=== PATIENT | male | born 1975 | race Caucasian/White ===

== ENCOUNTER 2020-02-11 09:10 | Outpatient (CLI) | payer BC, SELFPAY ==
--- NOTE | 2020-02-11 10:45 | NEURO_ITS ---
Patient Number: [id number] Impression: # Complains of left upper extremity pain and numbness. # Left ulnar neuropathy across the elbow. # Normal needle/EMG exam. Nerve Conduction Studies Anti Sensory Summary Table Stim Site NR Peak (ms) P-T Amp (?V) Site1 Site2 Delta-P (ms) Dist (cm) David (m/s) Left Median Anti Sensory (2-3nd Digit) Wrist 2.8 46.4 Wrist 2-3nd Digit 2.8 14.0 50 Wrist 3.0 35.7 Wrist 2-3nd Digit 2.8 14.0 50 Right Median Anti Sensory (2-3nd Digit) Wrist 3.5 24.4 Wrist 2-3nd Digit 3.5 14.0 40 Wrist 3.2 19.0 Wrist 2-3nd Digit 3.5 14.0 40 Left Radial Anti Sensory (Base 1st Digit) Wrist 1.9 15.2 Wrist Base 1st Digit 1.9 0.0 Right Radial Anti Sensory (Base 1st Digit) Wrist 2.1 33.0 Wrist Base 1st Digit 2.1 0.0 Left Ulnar Anti Sensory (5th Digit) Wrist 3.0 18.0 Wrist 5th Digit 3.0 14.0 47 Right Ulnar Anti Sensory (5th Digit) Wrist 3.5 17.8 Wrist 5th Digit 3.5 14.0 40 Motor Summary Table Stim Site NR Onset (ms) O-P Amp (mV) Site1 Site2 Delta-0 (ms) Dist (cm) David (m/s) Left Median Motor (Abd Poll Brev) Wrist 3.2 0.8 Elbow Wrist 5.2 30.0 58 Elbow 8.4 0.4 Right Median Motor (Abd Poll Brev) Wrist 3.3 2.2 Elbow Wrist 5.2 30.0 58 Elbow 8.5 2.0 Left Ulnar Motor (Abd Dig Minimi) Wrist 3.1 4.9 A Elbow Wrist 6.0 30.0 50 A Elbow 9.1 4.1 B Elbow Wrist 4.2 24.0 57 B Elbow 7.3 4.3 Right Ulnar Motor (Abd Dig Minimi) Wrist 3.3 4.7 A Elbow Wrist 5.2 32.0 62 A Elbow 8.5 4.0 F Wave Studies NR F-Lat (ms) L-R F-Lat (ms) Left Median (Mrkrs) (Abd Poll Brev) 28.71 0.53 Right Median (Mrkrs) (Abd Poll Brev) 29.24 0.53 Left Ulnar (Mrkrs) (Abd Dig Min) 31.66 2.05 Right Ulnar (Mrkrs) (Abd Dig Min) 29.61 2.05 EMG Side Muscle Nerve Root Ins Act Fibs Amp Dur Recrt Comment Right 1stDorInt Ulnar C8-T1 Nml Nml Nml Nml Nml Right Ext Indicis Radial (Post Int) C7-8 Nml Nml Nml Nml Nml Right Ext Digitorum Radial (Post Int) C7-8 Nml Nml Nml Nml Nml Right BrachioRad Radial C5-6 Nml Nml Nml Nml Nml Right PronatorTeres Median C6-7 Nml Nml Nml Nml Nml Right Abd Poll Brev Median C8-T1 Nml Nml Nml Nml Nml Left 1stDorInt Ulnar C8-T1 Nml Nml Nml Nml Nml Left Ext Indicis Radial (Post Int) C7-8 Nml Nml Nml Nml Nml Left Ext Digitorum Radial (Post Int) C7-8 Nml Nml Nml Nml Nml Left BrachioRad Radial C5-6 Nml Nml Nml Nml Nml Left PronatorTeres Median C6-7 Nml Nml Nml Nml Nml Left Abd Poll Brev Median C8-T1 Nml Nml Nml Nml Nml MTDD
== END 2020-02-11 09:11 | disposition home or self-care (01) ==
PROVIDERS: PCP Nurse Practitioner Family; Visit Provider Nurse Practitioner Family
DX: R20.0 Anesthesia of skin (principal); G56.22 Lesion of ulnar nerve, left upper limb
CPT/HCPCS: 95886; 95911

== ENCOUNTER 2023-02-18 06:50 | Outpatient (CLI) | payer BC, SELFPAY ==
--- NOTE | ~2023-02-18 | XR_ITS ---
XR lumbar spine 2-3V DATE: 02/18/2023 07:21 INDICATION: Nonradiating low back pain. No injury. TECHNIQUE: AP, lateral, coned lateral lumbosacral views COMPARISON: None FINDINGS: There is a transitional lumbosacral vertebra (fifth functional lumbar vertebra) with sacral ization and pseudoarthrosis on the left and lumbarization on the right. Transitional lumbosacral vert ebra may be a source of chronic back pain. There is severe degenerative disc disease between the fourth and fifth functional lumbar vertebrae. T he remaining lumbar and sacral interspaces appear relatively well preserved. There is mild degenerati ve spurring at L2-3 and L3-4. No fracture or bone destruction is evident. The included lower thoracic and lumbar pedicles are intac t. The sacroiliac joints are intact. 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 IMPRESSION: Transitional fifth functional lumbar vertebra with sacralization an d pseudoarthrosis on the left Severe degenerative disc disease at L4-5
[2023-02-18 08:16] LABS: Basophils Absolute Auto 0.1 K/mm3 (0.0-0.1); Basophils Percent Auto 0.7 % (0.2-1.2); Eosinophils Absolute Auto 0.2 K/mm3 (0-0.3); Eosinophils Percent Auto 2.3 % (0-4.4); Hemoglobin 13.4 g/dL (14.0-18.0); Immature Granulocyte Absolute 0.08 K/mm3 (0.00-0.031); Immature Granulocyte Percent A 0.9 % (0-0.5); Lymphocytes Absolute Auto 2.54 K/mm3 (0.9-3.2); Lymphocytes Percent Auto 29.3 % (18.3-44.2); Mean Corpuscular HGB Conc 31.2 g/dl (32-36); Mean Corpuscular Hemoglobin 23.1 pg (26-34); Mean Platelet Volume 8.7 fl (7.4-10.4); Monocytes Absolute Auto 0.7 K/mm3 (0.1-0.6); Monocytes Percent Auto 7.6 % (2.6-8.5); Neutrophils Absolute Auto 5.1 K/mm3 (1.3-6.7); Neutrophils Percent Auto 59.2 % (45.5-73.1); Platelet Count Result 388 k/mm3 (150-375); Red Blood Count 5.81 M/mm3 (4.6-6.20); Red Cell Distribution Width 15.8 % (11.5-14.5); White Blood Count 8.7 K/mm3 (4.5-10.0)
[2023-02-18 08:26] LABS: Alanine Aminotransferase 46 U/L (6-50); Albumin Level 4.5 g/dL (3.5-5.1); Alkaline Phosphatase 51 U/L (38-126); Anion Gap 7 mmol/L (8-16); Aspartate Amino Transferase 34 U/L (17-59); Bilirubin,Total 0.5 mg/dL (0.2-1.3); Blood Urea Nitrogen 17 mg/dL (9-20); Calcium 9.2 mg/dL (8.4-10.2); Carbon Dioxide 27 mmol/L (22-30); Chloride 105 mmol/L (98-107); Cholesterol 240 mg/dL (0-200); Estimated Glomerular Filt Rate > 60; Glucose 102 mg/dL (65-110); HDL Direct 43 mg/dL; Potassium 4.2 mmol/L (3.4-5.0); Sodium 139 mmol/L (137-145); Triglycerides 275 mg/dL (<150)
[2023-02-18 08:27] LABS: Iron 115 ug/dL (49-181)
[2023-02-18 08:39] LABS: LDL Cholesterol Direct 114 mg/dL
[2023-02-18 08:41] LABS: Free T4 Free Thyroxine 0.91 ng/mL (0.78-2.19)
[2023-02-18 08:49] LABS: Creatinine Urine 220.3 mg/dL
[2023-02-18 08:54] LABS: MALB Creatinine Ratio 3.5 mg/g (0-30); Microalbumin Urine Random 7.7 mg/L (0-16.7)
[2023-02-18 08:55] LABS: Prostate Specific Antigen 0.5 ng/mL (< OR = 4.0); Total Triiodothyronine (T3) 1.43 NG/ML (0.97-1.69)
[2023-02-22 00:24] LABS: Percent Iron Saturation 35 % (20-50)
[2023-02-22 00:26] LABS: Testosterone Free 75.6 pg/mL (46.0-224.0); Testosterone Total 491 ng/dL (250-1100)
== END 2023-02-18 06:51 | disposition home or self-care (01) ==
PROVIDERS: PCP Nurse Practitioner Family; Visit Provider Nurse Practitioner Adult Health
DX: Z00.00 Encounter for general adult medical examination without abnormal findings (principal); M54.50 Low back pain, unspecified; I10 Essential (primary) hypertension; R53.1 Weakness; R53.83 Other fatigue; Z87.891 Personal history of nicotine dependence; Q76.49 Other congenital malformations of spine, not associated with scoliosis; M51.36 Other intervertebral disc degeneration, lumbar region
CPT/HCPCS: 36415; 72100; 80053; 80061; 82043; 82728; 83540; 83550; 84153; 84402; 84403; 84439; 84443; 84480; 85025

== ENCOUNTER 2023-03-08 07:03 | Outpatient (CLI) | payer BC, SELFPAY ==
--- NOTE | ~2023-03-08 | MR_ITS ---
MRI of the lumbar spine Clinical History: Back pain Technique: Axial T2-weighted images, and sagittal T1-weighted, T2-weighted, and T2 fat-sat images wer e acquired. Findings: There is no fracture or subluxation of the lumbar spine. Vertebral bodies maintain normal h eight and alignment. No suspicious bone marrow signal abnormality seen. At L1-L2, L2-L3, L3-L4, there is no disc bulge or herniation. There are mild facet joint degenerative changes at these levels. No spinal canal stenosis or neural foraminal narrowing at these levels. At L4-L5, there is advanced degenerative disc narrowing. There is mild diffuse disc bulge with modera te facet arthropathy. No central canal stenosis. There is moderate left neural foraminal narrowing an d severe right neural foraminal narrowing. At L5-S1, there is no disc bulge or herniation. There is moderate to advanced facet arthropathy. No s angela canal stenosis or neural foraminal narrowing. Paravertebral soft tissues are unremarkable. Impression: Moderate to advanced degenerative spondylosis at L4-L5, as detailed above. Reviewed, dictated and finalized at [facility] M. Impression: Moderate to advanced degenerative spondylosis at L4-L5, as detailed above.
== END 2023-03-08 07:04 ==
LOC: MICIMG 07:04
PROVIDERS: PCP Nurse Practitioner Adult Health; Visit Provider Nurse Practitioner Adult Health
DX: M47.816 Spondylosis without myelopathy or radiculopathy, lumbar region (principal)
CPT/HCPCS: 72148

== ENCOUNTER 2023-06-14 07:07 | Outpatient (CLI) | payer BC, SELFPAY ==
[2023-06-14 07:48] LABS: Basophils Absolute Auto 0.1 K/mm3 (0.0-0.1); Basophils Percent Auto 0.8 % (0.2-1.2); Eosinophils Absolute Auto 0.2 K/mm3 (0-0.3); Eosinophils Percent Auto 2.1 % (0-4.4); Hematocrit 49.2 % (42.0-52.0); Immature Granulocyte Absolute 0.03 K/mm3 (0.00-0.031); Immature Granulocyte Percent A 0.4 % (0-0.5); Lymphocytes Absolute Auto 2.69 K/mm3 (0.9-3.2); Lymphocytes Percent Auto 34.8 % (18.3-44.2); Mean Corpuscular HGB Conc 30.5 g/dl (32-36); Mean Corpuscular Volume 75.5 fl (80-100); Mean Platelet Volume 8.8 fl (7.4-10.4); Monocytes Absolute Auto 0.8 K/mm3 (0.1-0.6); Monocytes Percent Auto 10.6 % (2.6-8.5); Neutrophils Percent Auto 51.3 % (45.5-73.1); Platelet Count Result 378 k/mm3 (150-375); Red Blood Count 6.52 M/mm3 (4.6-6.20); Red Cell Distribution Width 15.3 % (11.5-14.5); White Blood Count 7.7 K/mm3 (4.5-10.0)
[2023-06-18 13:09] LABS: Testosterone Free 305.2 pg/mL (35.0-155.0); Testosterone Total 1143 ng/dL (250-1100)
[2023-06-21 22:41] LABS: Estradiol, Ultrasensitive 58 pg/mL (< OR = 29)
== END 2023-06-14 07:08 | disposition home or self-care (01) ==
LOC: ANHLAB 07:08
PROVIDERS: PCP Nurse Practitioner Adult Health; Visit Provider Nurse Practitioner Adult Health
DX: R53.83 Other fatigue (principal); I10 Essential (primary) hypertension
CPT/HCPCS: 36415; 82670; 84402; 84403; 85025

== ENCOUNTER 2023-10-23 14:38 | Outpatient (CLI) | payer BC, SELFPAY ==
[2023-10-23 15:50] LABS: Alanine Aminotransferase 33 U/L (6-50); Albumin Level 4.5 g/dL (3.5-5.1); Alkaline Phosphatase 44 U/L (38-126); Anion Gap 4 mmol/L (8-16); Aspartate Amino Transferase 36 U/L (17-59); Bilirubin,Total 0.7 mg/dL (0.2-1.3); Blood Urea Nitrogen 13 mg/dL (9-20); Calcium 9.4 mg/dL (8.4-10.2); Carbon Dioxide 27 mmol/L (22-30); Chloride 105 mmol/L (98-107); Cholesterol 180 mg/dL (0-200); Estimated Glomerular Filt Rate > 60; Glucose 91 mg/dL (65-110); HDL Direct 42 mg/dL; Potassium 4.2 mmol/L (3.4-5.0); Sodium 136 mmol/L (137-145); Triglycerides 156 mg/dL (<150)
[2023-10-23 16:01] LABS: LDL Cholesterol Direct 109 mg/dL
[2023-10-30 14:42] LABS: Testosterone Total 1532 ng/dL (250-1100)
== END 2023-10-23 14:39 | disposition home or self-care (01) ==
LOC: ANHLAB 14:42
PROVIDERS: Registered Nurse; PCP Nurse Practitioner Adult Health; Visit Provider Family Medicine
DX: I10 Essential (primary) hypertension (principal); E78.5 Hyperlipidemia, unspecified
CPT/HCPCS: 36415; 80053; 80061; 84402; 84403

== ENCOUNTER 2023-11-01 08:38 | Outpatient (CLI) | payer BC, SELFPAY ==
[2023-11-01 10:29] LABS: Prostate Specific Antigen 1.1 ng/mL (< OR = 4.0)
[2023-11-05 17:49] LABS: Testosterone Free 357.8 pg/mL (35.0-155.0); Testosterone Total 1350 ng/dL (250-1100)
== END 2023-11-01 08:39 | disposition home or self-care (01) ==
LOC: ANHLAB 08:41
PROVIDERS: PCP Nurse Practitioner Adult Health; Visit Provider Family Medicine
DX: E29.1 Testicular hypofunction (principal); N40.0 Benign prostatic hyperplasia without lower urinary tract symptoms
CPT/HCPCS: 36415; 84153; 84402; 84403

== ENCOUNTER 2024-05-05 09:31 | Outpatient (CLI) | payer BC, SELFPAY ==
[2024-05-05 10:36] LABS: Basophils Absolute Auto 0.1 K/mm3 (0.0-0.1); Basophils Percent Auto 0.6 % (0.2-1.2); Eosinophils Absolute Auto 0.1 K/mm3 (0-0.3); Eosinophils Percent Auto 1.6 % (0-4.4); Hemoglobin 15.5 g/dL (14.0-18.0); Immature Granulocyte Absolute 0.02 K/mm3 (0.00-0.031); Immature Granulocyte Percent A 0.2 % (0-0.5); Lymphocytes Absolute Auto 4.01 K/mm3 (0.9-3.2); Lymphocytes Percent Auto 46.7 % (18.3-44.2); Mean Corpuscular HGB Conc 32.3 g/dl (32-36); Mean Corpuscular Hemoglobin 24.1 pg (26-34); Mean Corpuscular Volume 74.7 fl (80-100); Monocytes Absolute Auto 0.6 K/mm3 (0.1-0.6); Monocytes Percent Auto 7.3 % (2.6-8.5); Neutrophils Absolute Auto 3.7 K/mm3 (1.3-6.7); Neutrophils Percent Auto 43.6 % (45.5-73.1); Platelet Count Result 285 k/mm3 (150-375); Red Blood Count 6.43 M/mm3 (4.6-6.20); Red Cell Distribution Width 14.8 % (11.5-14.5); White Blood Count 8.6 K/mm3 (4.5-10.0)
[2024-05-05 10:53] LABS: Alanine Aminotransferase 33 U/L (6-50); Albumin Level 4.4 g/dL (3.5-5.1); Alkaline Phosphatase 54 U/L (38-126); Anion Gap 8 mmol/L (4-12); Aspartate Amino Transferase 35 U/L (17-59); Bilirubin,Total 0.6 mg/dL (0.2-1.3); Blood Urea Nitrogen 17 mg/dL (9-20); Calcium 8.8 mg/dL (8.4-10.2); Carbon Dioxide 28 mmol/L (22-30); Chloride 102 mmol/L (98-107); Cholesterol 178 mg/dL (0-200); Estimated Glomerular Filt Rate > 60; Glucose 91 mg/dL (65-110); HDL Direct 47 mg/dL; Potassium 4.3 mmol/L (3.4-5.0); Sodium 138 mmol/L (137-145); Triglycerides 93 mg/dL (<150)
[2024-05-05 11:04] LABS: LDL Cholesterol Direct 95 mg/dL
[2024-05-05 11:06] LABS: Platelet Estimate Adequate (Adequate)
[2024-05-05 11:09] LABS: Microcytosis 1+ (NORMAL)
[2024-05-05 11:10] LABS: Schistocytes None Seen
[2024-05-05 11:22] LABS: Prostate Specific Antigen 0.8 ng/mL (< OR = 4.0)
[2024-05-12 20:48] LABS: Testosterone Free 97.8 pg/mL (35.0-155.0); Testosterone Total 543 ng/dL (250-1100)
== END 2024-05-05 09:32 | disposition home or self-care (01) ==
PROVIDERS: PCP Nurse Practitioner Adult Health; Visit Provider Family Medicine
DX: N40.0 Benign prostatic hyperplasia without lower urinary tract symptoms (principal); E29.1 Testicular hypofunction
CPT/HCPCS: 36415; 80053; 80061; 84153; 84402; 84403; 85025

== ENCOUNTER 2024-06-30 08:39 | Outpatient (CLI) | payer BC, SELFPAY ==
--- NOTE | ~2024-06-30 | XR_ITS ---
XR sacrum coccyx min 2V Ordering provider: Morales Nieves, HAND BANDER History: . nO INJURY LBP THAT GOES DOWN BOTH LEGS . Comparison: None. FINDINGS: BONES: No acute fracture or dislocation. Attempt of sacralization of L5 is seen in the left side with pseudoarthrosis. Severe narrowing of the disc L4-L5. Moderate narrowing of the disc L5-S1. JOINTS: The sacroiliac joint spaces are normal. SOFT TISSUES: Normal. IMPRESSION: No definite acute osseous abnormality sacrum. If Patient continues to have symptoms CT is advised. Reviewed, dictated and finalized at location A. E MOVING SUPERVISOR
--- NOTE | ~2024-06-30 | XR_ITS ---
3 VIEWS LUMBAR SPINE Ordering provider: Morales Nieves, SALESPERSON TRAILERS AND MOTOR HOMES History: . nO RECENT INJURY LBP THAT GOES DOWN BOTH LEGS . Comparison: None. FINDINGS: VERTEBRAL BODIES: No visible fracture or subluxation. DISK SPACES: Severe degenerative disc disease at the level of L4-L5 and L5-S1. Facet joint disease at the 2 levels. SOFT TISSUES: Normal. IMPRESSION: No acute osseous abnormality lumbar spine. Severe narrowing of the disc L4-L5 and to lesser extent L5-S1. Reviewed, dictated and finalized at location A. MER MACHINE OPERATOR
== END 2024-06-30 08:40 | disposition home or self-care (01) ==
PROVIDERS: PCP Family Medicine; Visit Provider Registered Nurse
DX: M48.061 Spinal stenosis, lumbar region without neurogenic claudication (principal); M48.07 Spinal stenosis, lumbosacral region
CPT/HCPCS: 72100; 72220

== ENCOUNTER 2025-01-01 07:07 | Outpatient (CLI) | payer BC, SELFPAY ==
--- OUTSIDE RECORDS SUMMARY | 2025-01-01 07:13 | XMS_ITS | Clinical Summary ---
Author Organization [facility] Address [address] [place] [address] Care Team Providers Care Tile Presser Name Role Phone No, Physician Primary Care Provider [phone] Allergies Active Allergy Reactions Criticality Noted Date Comments Penicillins Medications naloxone (NARCAN) 1 mg/mL injection [place] one-half of syringe (1 mL) into each nostril upon signs of opioid overdose. December repeat x 1. Call 911. 4 mL 9 Active bacitracin 500 unit/gram ointment Apply topically 2 (two) times a day 120 g 9 Active HYDROcodone-samia taminophen (NORCO) 5-325 mg per tabletIndicatio ns:Pain Take 1 tablet by mouth every 6 (six) hours as needed for pain for up to 15 doses 12 tablet 3 Active Active Problems Problem Noted Date Diagnosed Date Foreign body in forearm 11/30/2016 Immunizations Immunization Administration Dates Next Due Tdap 04/05/2019 Social History Tobacco Use Types Packs/Day Years Used Date Smoking Tobacco: Every Day Personal Safety Answer Date Recorded Getting School Help Needed Not on file 02/19 Sex and Gender Information Value Date Recorded Sex Assigned at Not on file 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 Gender Identity Not on file Sexual Orientation Not on file Obstetrics History Last Filed Vital Signs Vital Sign Reading Time Taken Comments Blood Pressure 119/79 02/09/2023 11:20 AM CDT Pulse 72 02/09/2023 11:20 AM CDT Temperature 36.6 C (97.9 F) 02/09/2023 11:20 AM CDT Respiratory Rate 16 02/09/2023 11:20 AM CDT Oxygen Saturation 97% 02/09/2023 11:20 AM CDT Inhaled Oxygen Concentration - - Weight 93.6 kg (206 lb 5.6 oz) 02/09/2023 11:20 AM CDT Height 172.7 cm (5' 8) 02/09/2023 11:20 AM CDT Body Mass Index 31.38 02/09/2023 11:20 AM CDT Plan of Treatment Health Maintenance Due Date Last Done Comments Colon Cancer Screening-Colonoscopy 1975 Depression Screening 1975 Hepatitis B Screening 1993 Regular Well Visit/Exam 18-64 1993 Pneumococcal vaccine <65 (1 of 2 - PCV) 1994 Influenza Vaccine (Season Ended) 2025 DTaP/Tdap/Td Vaccine (2 - Td or Tdap) 04/05/202908/2018 Hepatitis C Screening Completed 06/09/2016 Procedures Procedure Name Priority Date/Time Associated Diagnosis Comments SERUM HEPATITIS C AB Routine 06/09/2016 12:11 PM CDT from Last 3 Months or Most Recently Relevant to Health Maintenance Results * Serum Hepatitis C ab (06/09/2016 12:11 PM CDT) HCV ab Negative NEG CDR HISTOR ICAL RESULTS Serum 06/09/2016 12:1 1 PM CDT Kalani Mcenal NP LAB BLOOD ORDERABLES Final Re sult CDR HISTORICAL RESULTS from Last 3 Months or Most Recently Relevant to Health Maintenance Insurance [facility] Care Teams Tile Presser Relationship Specialty Start Date End Date No, Physician PCP - General 02/09/23
--- OUTSIDE RECORDS SUMMARY | 2025-01-01 07:13 | XMS_ITS | Clinical Summary ---
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:57 AM DIRECTOR OF PEOPLE Gender Identity Not on file Sexual Orientation Not on file Plan of Treatment Health Maintenance Due Date Last Done Comments Hepatitis C Virus (HCV) Screening 1975 TdaP Immunization 1975 Hepatitis B Immunization (1 of 3 - 19+ 3-dose series) 1994 Colonoscopy 2020 Colorectal Cancer Screening 2020 Influenza Immunization (#1) 2024 SARS-COV-2 Immunization ( season) 2024 Respiratory Syncytial Virus (RSV) Immunization (Adult) (1 - 1-dose 75+ series) 2050 Meningococcal Immunization (ACWY) Aged Out No longer eligible based on patient's age to complete this topic Pneumococcal Immunization Combined Aged Out No longer eligible based on patient's age to complete this topic Rotavirus Immunization Aged Out No lo nger eligible based on patient's age to complete this topic
--- OUTSIDE RECORDS SUMMARY | 2025-01-01 07:13 | XMS_ITS | Continuity of Care Document ---
Author Organization [facility] Address [address] [place] [address] Phone Care Team Providers Care Agriscience Instructor Name Role Phone Pablo Hutchinson PA-C Unavailable Unava ilable Allergies, Adverse Reactions, Alerts Substance Reaction Status Criticality PENICILLIN Active No Information Medications Medication Instructions Dosage Effective Dates (start - stop) Status Comments Debrox 6.5 % ear drops instill 5 drop by otic route 2 times every day into affected ear(s) 5.00 drop - No Longer Active trazodone 50 mg tablet take 1-2 tablets by mouth before bedtime - No Longer Active Prozac 40 mg capsule take 1 capsule by oral route every day in the morning 40 MG - No Longer Active ProAir HFA 90 mcg/actuation aerosol inhaler inhale 2 puff by inhalation route every 4 - 6 hours as needed No Longer Active Mucus Relief ER 600 mg tablet,extended release take 1 tablet by oral route every 12 hours as needed - No Longer Active naproxen 500 mg tablet take 1 tablet by oral route 2 times every day with food 500 MG - No Longer Active Debrox 6.5 % ear drops instill 5 drop by otic route 2 times every day into affected ear(s) 5.00 drop - No Longer Active Procedures Procedure Date PERIODIC COMPREHENSIVE PREVENTIVE MED RE E/M; ESTABLISHED PATIENT; 40-64 Alcohol and/or drug screening Apr-20-201 8 OFFICE/OUTPATIENT VISIT, EST OFFICE/OUTPATIENT VISIT, EST COLLECTION OF VENOUS BLOOD BY VENIPUNCTU RE IRON IRON BINDING CAPACITY FERRITIN FOLIC ACID; SERUM CYANOCOBALAMIN (VITAMIN B-12); 17 OFFICE OUTPT EST 25 MIN Alcohol and/or drug screening 7 REMOVAL IMPACTED CERUMEN (SEPARATE PROCE DURE), ONE OR BOTH EARS Urinalysis, Auto, w/o Scope COLLECTION OF VENOUS BLOOD BY VENIPUNCTU RE COMPRE METAB PANEL BLOOD COUNT; COMPLETE (CBC), AUTOMATED (HGB, HCT, RBC, WBC AND PLATELET COUNT) PROSTATE SPECIFIC ANTIGEN (PSA); TOTAL J HIV-1 Antigen, W/HIV-1 & HIV-2 Antibody, Single Re LIPID PANEL HEPATITIS C ANTIBODY; IAAD EIA HEP B SURF AG OFFICE/OUTPATIENT VISIT, NEW PERIODIC COMPREHENSIVE PREVENTIVE MED RE E/M; ESTABLISHED PATIENT; 40-64 ALCOHOL/SUBSTANCE SCREEN & INTERVEN >30 MIN Advance Directives Directive Yes / No Effective Date File Name No Information Encounters Encounter Description Practice Location Reason(s) For Visit Diagnoses Date Provider Providers Copied on Encounter PERIODIC COMPREHENSIVE PREVENTIVE MED REE/M; ESTABLISHED PATIENT; 40-64 [facility], [address], [place], [place], [address] , tel: [phone] [facility] Preventive exam (chief complaint) Encntr for general adult medical exam w/o abnormal findingsEncou nter for screening for Ca of prostateEncou nter for screening for respiratory tuberculosisE ncounter for screening for other disorder [address] [facility]. [address], [place], [place], [address], [place]. [phone] Referring Provider: Pablo otero, [address], [place], [address] . tel:[phone] OFFICE/OUTPATI ENT VISIT, EST [facility], [address], [place], [place], [address] , [place] tel:[phone] [facility] depression (chief complaint) DepressionOth er abnormality of red blood cells 7 Evangelina Shah. [address], [place], [place], [address], [place]. tel:[phone] Referring Provider: Pablo Villarreal er, [address], [place], [address] . tel:[phone] OFFICE/OUTPATI ENT VISIT, EST [facility], [address], [place], [place], [address] , [place] tel:[phone] [facility] discussion of labs (chief complaint) Hyperlipidemi aOther abnormality of red blood cellsEncounte r for screening for other disorder 7 Lorna Dean. [address], [place], [place], [address], [place]. tel:[phone] OFFICE OUTPT EST 25 MIN [facility], [address], [place], [place], [address] , [place] tel:[phone] [facility] multiple complaints (chief complaint) DepressionBro nchitisImpact ed cerumen, right earEncounter for screening for other disorder 7 Evangelina Shah. [address], [place], [place], [address], [place]. tel:[phone] OFFICE/OUTPATI ENT VISIT, NEW [facility], [address], [place], [place], [address] , [place] tel: [phone] [facility] Psychiatric evaluation (chief complaint) 6 No Information PERIODIC COMPREHENSIVE PREVENTIVE MED REE/M; ESTABLISHED PATIENT; 40-64 [facility], [address], [place], [place], [address] , [place] tel:[phone] [facility] establish pcp (chief complaint) Encntr for general adult medical exam w/o abnormal findings [facility]. [address], [place], [place], [address], [place]. tel:[phone] Referring Provider: Pablo Villarreal er, [address], [place], [address] . tel:[phone] ALCOHOL/SUBSTA NCE SCREEN & INTERVEN >30 MIN [facility], [address], [place], [place], [address] , [place] tel:[phone] [facility] Depression No Information As per patient privacy policy some of the clinical information may not be visible. Family History Family Member Type Diagnosis Age At Onset No Information Immunizations Vaccine Date Status Comments Adacel/Boostrix (Tdap) administered Note: ER ; Source: Other Provider Payers Payer name Insurance type Covered constitution party ID Authoriza tion(s) No Information Social History Type Description Quantity Date Captured Comments Alcohol Use Details No 3 beers Caffeine Use Details Unknown Tobacco Use Status Smoking Status Heavy tobacco smoker Sex Male Sexual Orientation Straight or heterosexual Vital Signs Date / Time: Height Weight BMI Pulse Rate Blood Pressure Temperature Respiratory Rate Body Surface Area Head Circumference Head Circ. Percentile Wt./Luis. Percentile BMI percentile Pulse Ox Inhaled Ox 2:11 PM 68.00 in 79.696 kg (175.70 lbs) 26.7 1 kg/m eter (2) 98 /min 116/73 mm[Hg] 98.20 F 18 /min 97 % Chief Complaint And Reason For Visit From encounter dated '11/22/2017 14:15'. Preventive exam (chief complaint). Description: Men's preventive visit. Last seen 08/2016. Doing well. No hospitalizations or ER visits. No depression. No substance abuse. Feels well. No chronic or acute complaints. Reason For Referral Reason For Referral No Information Plan Of Treatment Date Type Action Status Goal Tobacco cessation counseling completed Goal Tobacco cessation counseling completed Goal Tobacco cessation counseling completed Future Order: Lab Order CBC (H/H , RBC, Indices, WBC, Plt) ([id number]), Ordered on: Ordered Future Order: Lab Order Basic Me tabolic Panel ([id number]), Ordered on: Ordered Future Order: Lab Order PSA Tota l ([id number]), Ordered on: Ordered Future Order: Lab Order Urinalys is, Macroscopic (POC) (OC80), Ordered on: Ordered Future Order: Lab Order QuantiFE MIKE(R)-TB Gold ([id number]), Ordered on: Ordered Future Order: Lab Order CBC (H/H , RBC, INDICES, WBC, PLT) (OC68), Ordered on: Ordered Future Order: Lab Order Comprehe nsive Metabolic Panel (OC71), Ordered on: Ordered Future Order: Lab Order Direct L DL (OC36), Ordered on: Ordered Future Order: Lab Order POC Hemo globin A1C (OC45), Ordered on: Ordered Future Order: Lab Order TSH with Reflex to Free T4 (OC58), Ordered on: Ordered Future Order: Lab Order Urinalys is, Macroscopic (OC80), Ordered on: Ordered Future Order: Lab Order HIV-1/2 Antigen and Antibodies, Fourth Generation, with Reflexes (OC54), Ordered on: Ordered Future Order: Lab Order Hepatiti s C Antibody (Diagnosis) (OC57), Ordered on: Ordered History Of Present Illness Encounter Date Complaint History Of Prese nt Illness Preventive exam Men's preventive visit. Last seen 08/2016. Doing well. No hospitalizations or ER visits. No depression. No substance abuse. Feels well. No chronic or acute complaints. depression This is a follow up visit. There is improvement of initial symptoms. The patient reports functioning as not difficult at all. The patient presents with depressed mood, difficulty falling asleep and difficulty staying asleep but denies hallucinations or thoughts of or suicide. The patient's risk factors include alcoholism. The depression is aggravated by alcohol use. The patient's relieving factors are a good response to medication (Prozac). The patient denies any chronic pain, headache, irritability, nausea, sweating, trembling, urinary frequency, vomiting and weight gain. discussion of labs Patient prese nting for discussion of labs,had recent URI,treated,did labs recently. Patient has an MCV=74--rsp=892-- multiple complaints Pt last seen March 2016. 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 Only complaint was stress over spouse and children. Was seen and cleared by Psych at subsequent visit. Pt states since March he has had 3 relapses with cocaine and alcohol. Stays at [facility]. Pt went to [facility] ER 4 days ago for cough and dyspnea as well as depression. Was diagnosed with acute bronchitis and given z-pac, inhaler and mucolytic. Only picked up z-pack and finished entire antibiotic. Denies dyspnea but does have lingering dry cough. C/o mucus stuck in chest he cannot expel. Denies fever, chills, pleuritic pain. He was given zoloft, amitriptyline and trazodone in the ER for depression and difficulty sleeping. Does not like zoloft as it causes GI upset. Had trialed it in the past as well with similar effect. Does admit to taking Prozac and Traz in the past with good results. Denies SI/SA, HI/[place], AH/VH. establish pcp Pt here to [facility] care and physical. PMH insignificant except for substance abuse. No prior surgeries, hospitalizations. No allergies. No medications. FH unremarkable. remarkable for incarceration, released in 2007. No complaints current or recent. Functional Status Date Functional Assessmen t Pain Score 0/10 Medications Administered Medication Instructions Dosage Effective Dates (start - stop) Status Comments Debrox 6.5 % ear drops instill 5 drop by otic route 2 times every day into affected ear(s) 5.00 drop - No Longer Active Instructions Date Instruction Additional Raudel crum Cannot make it back on Saturday to have PPD read.Will have Quantiferon drawn instead. Related to Encounter for screening for respiratory tuberculosis Discussed:Healthy di et and weightDaily exerciseDentist biannuallyVision screening annuallyAll age appropriate screenings and diagnostic exams Related to Encntr for general adult medical exam w/o abnormal findings Iron labs normalMild microcytic anemia - will await hemoglobinopathy studiesWill recheck CBC in 2 months - will have been sober 3+ months by then Related to Other abnormality of red blood cells Patient stable today ; No SA/SI, AH/VH, HI/HATreatment Plan: Continue Prozac 40mg, Trazodone prn qhsCounseled on signs and symptoms of emergency and when to call 911 or go to the ER. Patient verbalized an understanding.Counseled on medication uses and potential side effects. Counseled on when to call the office. Patient verbalized an understanding.Discussed best treatment plan which includes medication, counseling, adequate sleep, healthy diet and exercise and avoiding mind-altering substances.[facility] Hotline provided: ([phone]) Related to Depression Mucinex and Pro-AirC all if no improvement Related to Bronchitis Debrox as directedAvoid Q-tips R elated to Impacted cerumen, right ear Patient stable today ; No SA/SI, AH/VH, HI/HATreatment Plan: Start Prozac 40mg qd, Trazodone 50mg qhs, f/u 1 monthCounseled on signs and symptoms of emergency and when to call 911 or go to the ER. Patient verbalized an understanding.Counseled on medication uses and potential side effects. Counseled on when to call the office. Patient verbalized an understanding.Discussed best treatment plan which includes medication, counseling, adequate sleep, healthy diet and exercise and avoiding mind-altering substances.[facility] Hotline provided: ([phone]) Related to Depression Routine labs todayDi scussed healthy diet and exerciseReturn in 6 months Related to Encntr for general adult medical exam w/o abnormal findings Assessments Type Assessment Date assessment Encntr for general adult medical exam w/o abnormal findings assessment Encounter for screening for Ca o f prostate assessment Encounter for screening for resp iratory tuberculosis assessment Encounter for screening for othe r disorder Mental Status Date Cognitive Assessment Orientation - [place] ed to time, place, person, situation. Patient Care Teams Name Effective Dates (start - stop) Status Members No Information
--- OUTSIDE RECORDS SUMMARY | 2025-01-01 07:13 | XMS_ITS | Referral Summary ---
Author Organization [facility] Address [address] [place] [address] Care Team Providers Care Manufacturing Controls Engineer Name Role Phone No, Physician Primary Care Provider [phone] Allergies Active Allergy Reactions Criticality Noted Date Comments Penicillins Medications naloxone (NARCAN) 1 mg/mL injection [place] one-half of syringe (1 mL) into each nostril upon signs of opioid overdose. December repeat x 1. Call 911. 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 Gender Identity Not on file Sexual Orientation Not on file Last Filed Vital Signs Vital Sign Reading [...] 02/09/2023 11:20 AM CDT Plan of Treatment Not on file Procedures Procedure Name Priority Date/Time Associated Diagnosis Comments SERUM HEPATITIS C AB Routine 06/09/2016 12:11 PM CDT from Last 3 Months or Most Recently Relevant to Health Maintenance Results * Serum Hepatitis C ab (06/09/2016 12:11 PM CDT) HCV ab Negative NEG CDR HISTOR ICAL RESULTS Serum 06/09/2016 12:1 1 PM CDT Kalani Mcneal CHIEF INFORMATION SECURITY OFFICER LAB BLOOD ORDERABLES Final Re sult CDR HISTORICAL RESULTS from Last 3 Months or Most Recently Relevant to Health Maintenance Insurance [facility] ACCESS Member Subscriber Plan / Payer (Ef fective 2022-Present) Name:Thomas Vidales Relation to Subscriber:Spouse Name:JOELALEXANDER Payer ID:[id number] (NAIC) Type: [employer] Address: [facility] [id number] [phone] [place] Care Teams Manufacturing Controls Engineer Relationship Specialty Start Date End Date No, Physician PCP - General 02/09/23
[2025-01-01 08:00] LABS: Basophils Absolute Auto 0.1 K/mm3 (0.0-0.1); Basophils Percent Auto 0.6 % (0.2-1.2); Eosinophils Absolute Auto 0.2 K/mm3 (0-0.3); Hematocrit 43.4 % (42.0-52.0); Hemoglobin 13.3 g/dL (14.0-18.0); Immature Granulocyte Absolute 0.06 K/mm3 (0.00-0.031); Immature Granulocyte Percent A 0.7 % (0-0.5); Lymphocytes Absolute Auto 3.53 K/mm3 (0.9-3.2); Lymphocytes Percent Auto 44.1 % (18.3-44.2); Mean Corpuscular HGB Conc 30.6 g/dl (32-36); Mean Corpuscular Hemoglobin 23.3 pg (26-34); Mean Corpuscular Volume 75.9 fl (80-100); Mean Platelet Volume 8.7 fl (7.4-10.4); Monocytes Absolute Auto 0.7 K/mm3 (0.1-0.6); Monocytes Percent Auto 8.9 % (2.6-8.5); Neutrophils Absolute Auto 3.5 K/mm3 (1.3-6.7); Neutrophils Percent Auto 43.7 % (45.5-73.1); Platelet Count Result 336 k/mm3 (150-375); Red Blood Count 5.72 M/mm3 (4.6-6.20); Red Cell Distribution Width 15.5 % (11.5-14.5)
[2025-01-01 08:09] LABS: Alanine Aminotransferase 29 U/L (6-50); Albumin Level 4.3 g/dL (3.5-5.1); Alkaline Phosphatase 43 U/L (38-126); Anion Gap 6 mmol/L (4-12); Aspartate Amino Transferase 31 U/L (17-59); Bilirubin,Total 0.3 mg/dL (0.2-1.3); Blood Urea Nitrogen 20 mg/dL (9-20); Calcium 9.5 mg/dL (8.4-10.2); Carbon Dioxide 27 mmol/L (22-30); Chloride 107 mmol/L (98-107); Cholesterol 209 mg/dL (0-200); Estimated Glomerular Filt Rate > 60; Glucose 104 mg/dL (65-110); HDL Direct 50 mg/dL; Potassium 4.5 mmol/L (3.4-5.0); Sodium 140 mmol/L (137-145); Triglycerides 111 mg/dL (<150)
[2025-01-01 08:19] LABS: LDL Cholesterol Direct 97 mg/dL
[2025-01-01 08:39] LABS: Prostate Specific Antigen 0.5 ng/mL (< OR = 4.0)
[2025-01-06 16:58] LABS: Testosterone Free 229.1 pg/mL (35.0-155.0); Testosterone Total 1158 ng/dL (250-1100)
== END 2025-01-01 07:08 | disposition home or self-care (01) ==
LOC: ANHLAB 07:11
PROVIDERS: PCP Family Medicine; Visit Provider Registered Nurse
DX: E29.1 Testicular hypofunction (principal); I10 Essential (primary) hypertension; Z12.5 Encounter for screening for malignant neoplasm of prostate
CPT/HCPCS: 36415; 80053; 80061; 84153; 84402; 84403; 85025; G0103

== ENCOUNTER 2025-05-21 07:06 | Outpatient (CLI) | payer BC, SELFPAY ==
[2025-05-21 08:01] LABS: Hematocrit 44.5 % (42.0-52.0); Hemoglobin 13.7 g/dL (14.0-18.0); Mean Corpuscular HGB Conc 30.8 g/dl (32-36); Mean Corpuscular Hemoglobin 22.8 pg (26-34); Mean Corpuscular Volume 74.0 fl (80-100); Platelet Count Result 299 k/mm3 (150-375); Red Blood Count 6.01 M/mm3 (4.6-6.20); White Blood Count 9.5 K/mm3 (4.5-10.0)
[2025-05-21 08:15] LABS: Hemoglobin A1C 5.5 % (<5.7)
[2025-05-21 08:51] LABS: Alanine Aminotransferase 28 U/L (6-50); Albumin Level 4.3 g/dL (3.5-5.1); Alkaline Phosphatase 74 U/L (38-126); Anion Gap 6 mmol/L (4-12); Aspartate Amino Transferase 30 U/L (17-59); Bilirubin,Total 0.4 mg/dL (0.2-1.3); Blood Urea Nitrogen 15 mg/dL (9-20); Calcium 9.2 mg/dL (8.4-10.2); Carbon Dioxide 26 mmol/L (22-30); Chloride 109 mmol/L (98-107); Cholesterol 150 mg/dL (0-200); Estimated Glomerular Filt Rate > 60; Glucose 94 mg/dL (65-110); HDL Direct 34 mg/dL; Potassium 4.9 mmol/L (3.4-5.0); Sodium 141 mmol/L (137-145); Total Protein 7.1 g/dL (6.3-8.2); Triglycerides 128 mg/dL (<150)
[2025-05-21 09:27] LABS: Prostate Specific Antigen 1.1 ng/mL (< OR = 4.0)
[2025-05-21 10:00] LABS: Thyroid Stimulating Hormone Reflex 1.180 uIU/mL (0.465-4.68)
[2025-05-21 10:02] LABS: Vitamin B12 336.0 pg/mL (239-931)
== END 2025-05-21 07:07 | disposition home or self-care (01) ==
LOC: ANHLAB 07:11
PROVIDERS: PCP Family Medicine; Visit Provider Nurse Practitioner Family
DX: Z13.1 Encounter for screening for diabetes mellitus (principal); Z12.5 Encounter for screening for malignant neoplasm of prostate; R53.83 Other fatigue; E78.5 Hyperlipidemia, unspecified
CPT/HCPCS: 36415; 80053; 80061; 82306; 82607; 82746; 83036; 84153; 84443; 85027; G0103